=== PATIENT | male | born 1995 | race African-American/Black ===

== ENCOUNTER 2019-04-22 10:29 | Emergency (ER) | payer OTHER, BC ==
[2019-04-22 10:43] VITALS: BP 127/81
[2019-04-22] MEDS ORDERED: IBUPROFEN 800 MG TABLET PO ONE (10:44)
[2019-04-22] MEDS ORDERED: CYCLOBENZAPRINE HCL 10 MG TABLET PO ONE (10:44)
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
== END 2019-04-22 10:55 | disposition home or self-care (01) ==
LOC: ER 10:29
DX: S16.1XXA Strain of muscle, fascia and tendon at neck level, initial encounter (principal); M54.5 Low back pain; M54.2 Cervicalgia; V89.2XXA Person injured in unspecified motor-vehicle accident, traffic, initial encounter; F17.210 Nicotine dependence, cigarettes, uncomplicated
CPT/HCPCS: 99283; 99406